=== PATIENT | female | born 1980 ===

== ENCOUNTER 2020-07-20 12:01 | Emergency (ER) | payer BC ==
[2020-07-20 12:20] VITALS: TEMP 97.9; BMI 35.4
[2020-07-20] MEDS ORDERED: SODIUM CHLORIDE 1,000 ML IV SCH (12:30)
[2020-07-20] MEDS ORDERED: ACETAMINOPHEN 500 MG TABLET (FP) PO ONE (12:44)
[2020-07-20] MEDS ORDERED: ACETAMINOPHEN INJECTION 100 ML IVPB ONE (12:55)
[2020-07-20 14:24] LABS: BASO % 1.2 % (0-2.0); EOS % 2.6 % (0-4.5); HEMATOCRIT 31.5 % (32.4-45.2); LYMPH % 23.5 % (8-40); MCH 24.2 pg (25.7-33.7); MCHC 31.7 g/dl (32.0-36.0); MEAN CELL VOLUME 76.3 fl (80-96); MEAN PLT VOLUME 9.6 fl (7.5-11.1); MONO % 9.1 % (3.8-10.2); NEUT % 63.6 % (42.8-82.8); PLATELET COUNT 325 K/MM3 (134-434); RBC 4.13 M/mm3 (3.60-5.2); RDW 15.7 % (11.6-15.6); WHITE BLOOD COUNT 9.8 K/mm3 (4.0-10.0)
[2020-07-20 14:28] LABS: HCG,QUALITATIVE URINE Negative
[2020-07-20 14:30] LABS: INR 0.92 (0.83-1.09); PROTHROMBIN TIME (PATIENT) 11.2 SEC (9.7-13.0); URINE APPEARANCE CLEAR; URINE BILIRUBIN NEGATIVE (NEGATIVE); URINE COLOR YELLOW; URINE GLUCOSE (UA) NEGATIVE (NEGATIVE); URINE KETONE NEGATIVE (NEGATIVE); URINE LEUK ESTERASE NEGATIVE (NEGATIVE); URINE NITRITE NEGATIVE (NEGATIVE); URINE PROTEIN NEGATIVE (NEGATIVE); URINE UROBILINOGEN 0.2 mg/dL (0.2-1.0)
[2020-07-20 14:32] LABS: EPI CELLS 1 /uL (0-25.1); HYALINE CASTS 0 /uL (0-3.1); URINE BACTERIA 36 /uL (0-1359); URINE RBC 4 /uL (0-23.9); URINE WBC 0 /uL (0-25.8)
[2020-07-20 14:33] LABS: ACTIVATED PTT 25.9 SECONDS (25.2-36.5)
[2020-07-20 14:48] LABS: CHLORIDE 109 mmol/L (98-107); SODIUM 141 mmol/L (136-145)
[2020-07-20 14:50] LABS: ALBUMIN 3.2 g/dl (3.4-5.0); CALCIUM 8.1 mg/dL (8.5-10.1)
[2020-07-20 14:51] LABS: ANION GAP 5 MMOL/L (8-16); BLOOD UREA NITROGEN 14.4 mg/dL (7-18); CO2 27 mmol/L (21-32); GLUCOSE,RANDOM 79 mg/dL (74-106)
[2020-07-20 14:53] LABS: BILIRUBIN,DIRECT 0.1 mg/dL (0.0-0.2); SGPT/ALT 41 U/L (13-61)
[2020-07-20 14:54] LABS: CREATININE 0.6 mg/dL (0.55-1.3); SGOT/AST 27 U/L (15-37)
[2020-07-20 14:55] LABS: BILIRUBIN,TOTAL 0.2 mg/dL (0.2-1); TOT PROT 6.6 g/dl (6.4-8.2)
[2020-07-20 14:56] LABS: ALK PHOS 95 U/L (45-117)
[2020-07-20 14:58] LABS: LDH 204 U/L (84-246)
[2020-07-20] MEDS ORDERED: AZITHROMYCIN 500 MG TABLET ONE (17:40)
[2020-07-20 17:48] VITALS: BP 118/80; PULSE 85
== END 2020-07-20 18:09 | disposition home or self-care (01) ==
LOC: JER 12:01
DX: R06.02 Shortness of breath (principal); U07.1 COVID-19
CPT/HCPCS: 36415; 71045-TC-FY; 71260-TC; 80053; 81003; 82248; 82550; 82728; 83605; 83615; 84484; 84703; 85025; 85610; 85730; 86140; 87040; 87086; 93005; 93010; 99285-25